=== PATIENT | male | born 1940 | race Caucasian/White ===

== ENCOUNTER 2018-11-02 10:26 | Emergency (ER) | payer MEDICARE ==
[~2018-11-02] VITALS: Ht 188 cm; Wt 100.0 kg
[2018-11-02] MEDS ORDERED: ketorolac tromethamine 15mg/ml inj. IM ONE (11:45)
[2018-11-02 12:27] LABS: CLARITY,URINE CLEAR (Clear); COLOR,URINE YELLOW (Yellow); GLUCOSE, URINE NEGATIVE (Neg); KETONES,URINE NEGATIVE (Neg); LEUKOCYTE ESTERASE ,URINE NEGATIVE (Neg); NITRITES, URINE NEGATIVE (Neg); OCCULT BLOOD,URINE NEGATIVE (Neg); PH,URINE 5.5 (4.8-8.0); PROTEIN,URINE NEGATIVE (Neg); UROBILINOGEN,URINE 0.2 E.U/dL (0.2-1.0)
[2018-11-02 12:28] LABS: UA COLLECTION TYPE CLN CATCH MIDSTREAM
[2018-11-02 13:40] VITALS: BP 165/69
== END 2018-11-02 13:44 | disposition home or self-care (01) ==
LOC: ER 10:27
DX: M25.552 Pain in left hip (principal); R10.32 Left lower quadrant pain; F17.200 Nicotine dependence, unspecified, uncomplicated; M10.9 Gout, unspecified
CPT/HCPCS: 73502; 81003; 96372; 99284; J1885

== ENCOUNTER 2018-11-19 09:31 | Emergency (ER) | payer MEDICARE ==
[~2018-11-19] VITALS: Ht 190.5 cm; Wt 100.0 kg
--- NOTE | 2018-11-19 10:32 | NUR ---
DIRECTOR OF DEMENTIA OPERATIONS AT BEDSIDE.
[2018-11-19 11:30] LABS: BASOPHILS # (AUTO) 0.1 X10'3 (0-0.2); BASOPHILS % (AUTO) 0.9 % (0-1); EOSINOPHILS # (AUTO) 0.3 X10'3 (0-0.9); EOSINOPHILS % (AUTO) 2.9 % (0-6); HEMATOCRIT 34.9 % (42.0-52.0); HEMOGLOBIN 11.7 g/dl (14.0-17.9); LYMPHOCYTES # (AUTO) 1.8 X10'3 (1.1-4.8); LYMPHOCYTES % (AUTO) 20.2 % (21-51); MEAN CORPUSCULAR HEMOGLOBIN 28.9 PG (27.0-31.0); MEAN CORPUSCULAR HGB CONC 33.7 g/dL (33.0-36.5); MEAN CORPUSCULAR VOLUME 85.9 FL (78-98); MEAN PLATELET VOLUME 7.3 FL (7.4-10.4); MONOCYTES # (AUTO) 0.7 X10'3 (0-0.9); MONOCYTES % (AUTO) 7.4 % (2-12); NEUTROPHILS # (AUTO) 6.2 X10'3 (1.8-7.7); NEUTROPHILS % (AUTO) 68.6 % (42-75); PLATELET COUNT 239 X10'3 (140-440); RED BLOOD COUNT 4.06 X10'6 (4.70-6.10); RED CELL DISTRIBUTION WIDTH 15.3 % (11.5-14.5); WHITE BLOOD COUNT 9.1 X10'3 (4.5-11.0)
[2018-11-19 11:50] LABS: ALANINE AMINOTRANSFERASE 18 U/L (12-78); ALBUMIN/GLOBULIN RATIO 0.9 (1.1-1.5); ALKALINE PHOSPHATASE 81 IU/L (46-116); ANION GAP 5 (8-16); ASPARTATE AMINO TRANSFERASE 16 U/L (10-37); BILIRUBIN,TOTAL 0.3 MG/DL (0.1-1.0); BLOOD UREA NITROGEN 16 MG/DL (7-18); BUN/CREATININE RATIO 15.8 (5.4-32.0); CHLORIDE 103 MMOL/L (99-107); CREATININE 1.01 MG/DL (0.60-1.10); GLUCOSE 112 MG/DL (70-104); POTASSIUM 3.5 MMOL/L (3.5-5.1); SODIUM 137 MMOL/L (135-145); TOTAL CARBON DIOXIDE 28.6 MMOL/L (24-32); TOTAL PROTEIN 6.5 G/DL (6.4-8.2); eGFR 71 ML/MIN
[2018-11-19] MEDS ORDERED: CEPH-572 PO (12:19)
[2018-11-19 12:37] VITALS: BP 166/96
== END 2018-11-19 12:39 | disposition home or self-care (01) ==
LOC: ER 09:35
DX: L03.116 Cellulitis of left lower limb (principal); L03.115 Cellulitis of right lower limb; M10.9 Gout, unspecified
CPT/HCPCS: 36415; 80053; 85025; 93970; 99284

== ENCOUNTER 2018-12-04 13:32 | Emergency (ER) | payer MEDICARE ==
[~2018-12-04] VITALS: Ht 188 cm; Wt 100.0 kg
[2018-12-04 14:00] VITALS: BP 199/90
[2018-12-04] MEDS ORDERED: AMLO5TAB PO (14:46)
== END 2018-12-04 15:09 | disposition home or self-care (01) ==
LOC: ER 13:34
DX: I10 Essential (primary) hypertension (principal); M10.9 Gout, unspecified; F17.200 Nicotine dependence, unspecified, uncomplicated
CPT/HCPCS: 99284